=== PATIENT | female | born 1970 | race Caucasian/White ===

== ENCOUNTER → 2020-12-07 | Outpatient (CLI) | payer MEDICARE ==
[~2020-12-07] MED LIST: PERCOCET 10-321 EACH PO; XARELTO10 MG PO
== END ==
LOC: SLEEP-COR 10:22
DX: G47.00 Insomnia, unspecified (principal); G47.33 Obstructive sleep apnea (adult) (pediatric)
CPT/HCPCS: 95810

== ENCOUNTER → 2021-04-13 | Outpatient (CLI) | payer MEDICARE ==
[~2021-04-13] MED LIST changes: +AMBIEN10 MG PO; +COZAAR 25MG TAB25 MG PO; +CYMBALTA60 MG PO; +HYDROCODON-ACE1 EAC6 PO; +METFORMIN HCL500 MG PO; +NEURONTIN600 MG PO; +VITAMIN D
[2021-04-13 10:25] LABS: HEMOGLOBIN 14.3 gm/dl (12.3-15.3); RED BLOOD COUNT 4.55 M/UL (4.00-5.10); WHITE BLOOD COUNT 6.9 K/UL (4.5-11.0)
[2021-04-13 10:51] LABS: BUN/CREATININE RATIO 13 (0-10)
== END ==
LOC: OPSV2 09:00
PROVIDERS: Obstetrics & Gynecology
DX: Z01.818 Encounter for other preprocedural examination (principal); N81.9 Female genital prolapse, unspecified
CPT/HCPCS: 36415; 80053; 81001; 85025; 93005

== ENCOUNTER → 2021-04-20 | Day surgery (SDC) | payer MEDICARE ==
[~2021-04-20] MED LIST changes: +DOCUSATE SODIU250 MG PO; +HYDROCODONE-AC1 EACH PO; +IBUPROFEN600 MG PO
== END | disposition home or self-care (01) ==
LOC: OR 05:30 → CDU 14:55 → OR 14:55
DX: D25.1 Intramural leiomyoma of uterus (principal); N83.8 Other noninflammatory disorders of ovary, fallopian tube and broad ligament; N81.6 Rectocele; N39.46 Mixed incontinence; K59.00 Constipation, unspecified; E66.9 Obesity, unspecified; Z20.822 Contact with and (suspected) exposure to COVID-19; Z68.32 Body mass index [BMI] 32.0-32.9, adult; E11.40 Type 2 diabetes mellitus with diabetic neuropathy, unspecified; Z88.6 Allergy status to analgesic agent; Z88.5 Allergy status to narcotic agent; I10 Essential (primary) hypertension; Z96.642 Presence of left artificial hip joint
CPT/HCPCS: 71045; 82962; 84703; C1769; J0690; J1100; J1170; J1885; J2001; J2250; J2370; J2405; J2704; J2710; J3010; J7050; J7120

== ENCOUNTER → 2021-11-24 | Outpatient (CLI) | payer MEDICARE, OTHER ==
[~2021-11-24] VITALS: Ht 172.7 cm; Wt 100.2 kg
[~2021-11-24] MED LIST changes: +CEPHALEXIN500 M1 PO
[2021-11-24 14:17] LABS: HEMOGLOBIN 14.5 gm/dl (12.3-15.3); RED BLOOD COUNT 4.69 M/UL (4.00-5.10); WHITE BLOOD COUNT 7.7 K/UL (4.5-11.0)
[2021-11-24 14:28] LABS: BUN/CREATININE RATIO 16 (0-10)
== END ==
LOC: OPSV2 12:30
PROVIDERS: Orthopaedic Surgery
DX: Z01.818 Encounter for other preprocedural examination (principal); M16.11 Unilateral primary osteoarthritis, right hip; R91.8 Other nonspecific abnormal finding of lung field
CPT/HCPCS: 71046; 80048; 81001; 83036; 85025; 87081; 93005

== ENCOUNTER → 2021-12-07 | Outpatient (CLI) | payer MEDICARE ==
[~2021-12-07] MED LIST changes: +ELIQUIS 2.5 MG2.5 MG PO; -VITAMIN D; +VITAMIN D21250 MCG PO
[2021-12-07 11:08] LABS: BUN/CREATININE RATIO 11 (0-10)
== END ==
LOC: LAB 09:10
PROVIDERS: Orthopaedic Surgery
DX: Z01.812 Encounter for preprocedural laboratory examination (principal)
CPT/HCPCS: 36415; 80048; 86850; 86900; 86901

== ENCOUNTER 2021-12-08 07:03 | Observation (INO) | payer MEDICARE, MEDICAID ==
[~2021-12-08] VITALS: Ht 172.7 cm; Wt 100.2 kg
[~2021-12-08 07:03] MED LIST changes: -ELIQUIS 2.5 MG2.5 MG PO
[2021-12-09 05:23] LABS: HEMOGLOBIN 11.3 gm/dl (12.3-15.3); RED BLOOD COUNT 3.67 M/UL (4.00-5.10); WHITE BLOOD COUNT 13.5 K/UL (4.5-11.0)
[2021-12-09] MEDS ORDERED: ELIQUIS 2.5 MG2.5 MG PO (08:19)
[2021-12-09 14:06] LABS: BUN/CREATININE RATIO 14 (0-10)
== END 2021-12-09 12:45 | disposition home or self-care (01) ==
LOC: OR 07:03 → EDSTATUS 07:30 → OR 11:45 → CCU 15:24
PROVIDERS: ADMIT Orthopaedic Surgery
DX: M16.11 Unilateral primary osteoarthritis, right hip (principal); M25.751 Osteophyte, right hip; I10 Essential (primary) hypertension; E11.40 Type 2 diabetes mellitus with diabetic neuropathy, unspecified; G47.33 Obstructive sleep apnea (adult) (pediatric); E24.9 Cushing's syndrome, unspecified; I26.99 Other pulmonary embolism without acute cor pulmonale; Z88.5 Allergy status to narcotic agent; Z88.6 Allergy status to analgesic agent
CPT/HCPCS: 96374; 96376; 73501; 73502; 76000; 80048; 82962; 85027; 97116-GP-CQ; 97161; 97166; 97535; C1776; G0378; J0690; J1170; J1200; J1885; J2250; J2274; J2370; J2405; J2704; J2710; J3370; J3475; J7050